=== PATIENT | male | born 1960 | race Caucasian/White ===

== ENCOUNTER 2019-01-08 21:42 | Inpatient (IN) | payer OTHER ==
[~2019-01-08] VITALS: Ht 165.1 cm; Wt 83.9 kg
[~2019-01-08 21:42] MED LIST: ACET325T33 PO; METF850T13 PO
[2019-01-08] MEDS ORDERED: SOD CHLORIDE 0.9% 1,000 ML IV ONE (22:33)
[2019-01-08] MEDS ORDERED: morphine 4 MG/ML VIAL IV ONE (22:34)
[2019-01-08] MEDS ORDERED: ONDANSETRON 4 MG INJ IV ONE (22:34)
[2019-01-08] MEDS ORDERED: HYDROmorphONE 0.5 MG/0.5 ML SYG IV STA (23:47)
[2019-01-09] MEDS ORDERED: ACETAMINOPHEN 325 MG TAB PO PRN ×2 (02:30→04:30)
[2019-01-09] MEDS ORDERED: ONDANSETRON 4 MG INJ IV PRN ×2 (02:30→04:30)
[2019-01-09] MEDS ORDERED: SOD CHLORIDE 0.9% 1,000 ML IV SCH (04:09)
[2019-01-09] MEDS ORDERED: GLUCAGON 1 MG INJ IM PRN (04:30)
[2019-01-09] MEDS ORDERED: DOCUSATE SODIUM 100 MG CAP PO PRN (04:30)
[2019-01-09] MEDS ORDERED: DEXTROSE 50% 50 ML SYRINGE IV PRN ×2 (04:30)
[2019-01-09] MEDS ORDERED: GLUCOSE GEL 15 GRAM TUBE PO PRN ×2 (04:30)
[2019-01-09] MEDS ORDERED: GLUCOSE GEL 15 GRAM TUBE BUCCAL PRN (04:30)
[2019-01-09] MEDS ORDERED: NACL 0.9% 3 ML SYG IV SCH (04:30)
[2019-01-09] MEDS ORDERED: morphine 2 MG INJ IV PRN (04:30)
[2019-01-09] MEDS ORDERED: BISACODYL (EC) 5 MG TAB PO PRN (04:30)
--- NOTE | 2019-01-09 04:31 | HP ---
Date/Time of Note Date/Time of Note DATE: 01/09/19 TIME: 04:15 Assessment/Plan VTE Prophylaxis SCD applied (from Nsg): Yes Pharmacological prophylaxis: NA/contraindicated Pharm contraindication: low risk/ambulating Lines/Catheters IV Catheter Type (from Nrsg): Saline Lock Assessment/Plan Hospital Course This is a 58-year-old male being admitted to the [facility] floor for: 1. Abdominal pain: CT scan concerning for ileus versus enteritis. There is also concern for possible closed loop obstruction versus internal hernia. At the current time we will keep the patient n.p.o. except meds. IV fluid hydration with normal saline. Zofran for nausea. Pain management. Will check electrolytes. General surgery has been consulted by the ED. Will await further recommendations. #2 Incidentaloma: CT scan shows a left-sided adrenal adenoma: 1.7cm x 1.3cm. Consider further work-up as an outpatient. #3 elevated blood sugars: Likely undiagnosed diabetes mellitus. Will check he moglobin A1c insulin sliding scale. #4 elevated blood pressure: Patient did present with elevated blood pressures in the 180s systolic however this did improve without any antihypertensive medications. This possibly could have been secondary to his pain. We will monitor closely. #5 obesity: Check hemoglobin A1c, lipid panel, TSH #6 DVT GI prophylaxis: SCDs, no GI prophylaxis indicated Further treatment strategy will be implemented as per the clinical course. Result Diagram: 01/08/19222901/08/190 Results 24hrs Laboratory Tests Test 01/08/19 22:30 01/09/19 03:32 White Blood Count 20.9 H Red Blood Count 5.04 Hemoglobin 15.6 Hematocrit 45.2 Mean Corpuscular Volume 89.7 Mean Corpuscular Hemoglobin 31.0 Mean Corpuscular Hemoglobin Concent 34.5 Red Cell Distribution Width 12.7 Platelet Count 294 Mean Platelet Volume 10.2 Immature Granulocytes % 0.600 H Neutrophils % 86.0 H Lymphocytes % 7.6 L Monocytes % 5.4 Eosinophils % 0.2 Basophils % 0.2 Nucleated Red Blood Cells % 0.0 Immature Granulocytes # 0.130 H Neutrophils # 18.0 H Lymphocytes # 1.6 Monocytes # 1.1 H Eosinophils # 0.0 Basophils # 0.1 Nucleated Red Blood Cells # 0.0 Prothrombin Time 13.0 Prothrombin Time Ratio 1.0 INR International Normalized Ratio 0.97 Activated Partial Thromboplast Time 27.4 Sodium Level 141 Potassium Level 3.8 Chloride Level 102 Carbon Dioxide Level 28 Anion Gap 11 Blood Urea Nitrogen 15 Creatinine 0.76 Est Glomerular Filtrat Rate mL/min > 60 Glucose Level 324 H Calcium Level 10.2 Total Bilirubin 1.0 Direct Bilirubin 0.00 Indirect Bilirubin 1.0 Aspartate Amino Transf (AST/SGOT) 32 Alanine Aminotransferase (ALT/SGPT) 24 Alkaline Phosphatase 123 H Total Protein 8.5 H Albumin 4.4 Globulin 4.10 H Albumin/Globulin Ratio 1.07 Amylase Level 82 Lipase 109 Bedside Glucose 253 H HPI/ROS Admit Date/Time Admit Date/Time Hx of Present Illness Chief complaint: Abdominal pain This is a 58-year-old male with no past medical history who presents to the emergency department complaining of abdominal pain. Patient reports that the pain has been going on for approximately 1 day. He states that it is sharp and it comes and goes. He reports that he yesterday had some milk coffee and bread and then a short while after that he started experiencing this pain. He denies any nausea vomiting or diarrhea. He did report that his last bowel movement was yesterday. He denies any fevers. He has not had any history of abdominal surgeries. Allergies: NKDA Medications: None ROS Const: As per HPI Eyes : No pain discharge or redness or change in visual acuity ENT: No pain, sore throat, congestion, congestion, dysphagia or discharge Respiratory: No shortness of breath, cough, sputum, wheezing, or pleuritic pain Cardiovascular: No chest pain, palpitation, PND, or edema GI : As per HPI Genitourinary: No dysuria, hematuria, flank pain , discharge or CVA tenderness Musculoskeletal: No joint pain, back pain, neck pain, restricted range of motion in neck or joints Skin: No rash, bruising or hives Neuro: No headache, dizziness, syncope, seizure, focal weakness Endocrine: No polyuria, polydipsia, temperature intolerance Psych: No hallucination, depression, anxiety or suicidal ideation PMH/Family/Social Past Medical History Medical History: no pertinent history Medications Current Medications Ondansetron HCl (Zofran Inj) 4 mg BRIDGE ORDER PRN IV NAUSEA/VOMITING; Start 01/09/19 at 02:30; Stop 01/10/19 at 02:29 Acetaminophen (Tylenol Tab) 650 mg ER BRIDGE PRN PO .MILD PAIN 1-3 OR TEMP; Start 01/09/19 at 02:30; Stop 01/10/19 at 02:29 Sodium Chloride 1,000 ml @ 100 mls/hr Q10H IV ; Start 01/09/19 at 04:09; Status UNV IV Flush (NS 3 ml) 3 ml PER PROTOCOL IV ; Start 01/09/19 at 04:30; Status UNV Ondansetron HCl (Zofran Inj) 4 mg Q6H PRN IV NAUSEA/VOMITING; Start 01/09/19 at 04:30; Status UNV Acetaminophen (Tylenol Tab) 650 mg Q6H PRN PO .PAIN 1-3 OR TEMP; Start 01/09/19 at 04:30; Status UNV Morphine Sulfate (morphine) 2 mg Q4H PRN IV .SEVERE PAIN 7-10; Start 01/09/19 at 04:30; Status UNV Docusate Sodium (Colace) 100 mg Q12H PRN PO .CONSTIPATION; Start 01/09/19 at 04:30; Status UNV Bisacodyl (Dulcolax) 5 mg DAILY PRN PO .CONSTIPATION; Start 01/09/19 at 04:30; Status UNV Coded Allergies: No Known Drug Allergies (Verified Allergy, Unknown, 01/09/19) Past Surgical History Past Surgical Hx: no surgical history Family History Significant Family History: no pertinent family hx Social History Alcohol Use: none Smoking Status: Never smoker Drug Use: none Exam/Review of Systems Vital Signs Vitals Vital Signs Date Temp Pulse Resp B/P (MAP) Pulse Ox O2 O2 Flow FiO2 Time Delivery Rate 01/09/19 98.8 83 13 117/79 97 Room Air 04:02 (92) Exam Exam General: Patient is a pleasant male currently lying in bed in no acute distress. HEENT: Atraumatic, normocephalic. The pupils are equal, round and reactive. Extraocular motor are intact Neck: Supple with full range of motion. No rigidity or meningismus Chest: Nontender Lungs: Clear to auscultation bilaterally no crackles rales or wheezing Heart: Normal S1-S2, Regular rhythm and rate. No murmur, S3, or S4 Abdomen: Obese, soft , nontender, nondistended , mildly hypoactive bowel sounds no guarding no rebound tenderness , No masses or organomegaly. No costovertebral temporal angle mass Extremities: Normal to inspection, no edema no cyanosis Neurologic: Normal mental status, speech normal, cranial nerves II through XII are intact, motor and sensory are intact, no focal weakness Additional Comments PROCEDURE: CT Abdomen and pelvis without contrast. CLINICAL INDICATION: Abdominal pain. TECHNIQUE: CT scan of the abdomen and pelvis was performed on a multi- detector high-resolution CT scanner. Contiguous axial images were obtained from the lung bases to the ischial tuberosities without intravenous contrast. Coronal and sagittal reformatted images were also obtained. Images were reviewed on the PACS workstation. DICOM images are available. One or more of the following dose reduction techniques were used: - Automated exposure control. - Adjustment of the mA and/or kV according to patient size. - Use of iterative reconstruction technique. Exam CTD/vol = 14.94 mGy. Total exam DLP = 954.10 mGy-cm. COMPARISON: None. FINDINGS: Evaluation of the lung bases demonstrates no pleural or parenchymal disease. Abdomen: The liver is normal in size. There is no focal mass or dilatation of the biliary tree. The gallbladder is not distended. The spleen, pancreas and right adrenal gland are within normal limits. There is a nodule within the left adrenal gland measuring 1.7 x 1.3 cm with Hounsfield characteristics compatible with adenoma. Bilateral kidneys are normal in size with no contour deforming mass identified. There is no radiopaque renal or ureteral calculus identified. There is no hydronephrosis or hydroureter. There is no retroperitoneal adenopathy. The abdominal aorta is of normal caliber. There are mildly dilated and thickened loops of small bowel within the mid to left abdomen with mesenteric stranding and mild free fluid. There is no free air. A normal appendix is identified. There are scattered sigmoid diverticuli without evidence of diverticulitis. Pelvis: The bladder is unremarkable. There is trace pelvic free fluid. The prostate is mildly enlarged. There are bilateral small inguinal hernias containing fat. There is no significant pelvic adenopathy. Evaluation of the osseous structures demonstrates no suspicious lytic or blastic lesion. IMPRESSION: Mildly dilated and thickened loops of small bowel within the mid to left abdomen with mesenteric stranding and mild free fluid represents an ileus and/or enteritis. Findings could suggest an internal hernia or closed loop obstruction. Follow-up is recommended. Scattered sigmoid diverticuli without evidence of diverticulitis. Trace pelvic free fluid. Mildly enlarged prostate. Bilateral small inguinal hernias containing fat. Left adrenal adenoma. Report relayed by Michell. .Bon Moreira MD, MD Date Time Electronically viewed and signed by .Bon Moreira MD, MD on 01/09/2019 00:04 .T/ CC: RICCI WEBSTER [id number] PROCEDURE: XR Chest. CLINICAL INDICATION: Abdominal pain TECHNIQUE: Single frontal view of the chest was obtained COMPARISON: CT abdomen pelvis of 01/08/2019 FINDINGS: The heart and mediastinum are within normal limits. Mild degenerative enthesopathy in lower thoracic spine. Hypoinflation lungs. No focal lung consolidation is seen. There is no pleural effusion or pneumothorax. ECG leads project over the chest. 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 IMPRESSION: Hypoinflation of the lungs. No definite acute abnormality seen. RPTAT: HJES .Crow Burciaga MD, Date Time Electronically viewed and signed by .Crow Burciaga MD, MD on 01/08/2019 23:56 .S/ CC: RICCI WEBSTER [id number] ASHLEY ANDERSEN Jan 09, 2019 04:25
[2019-01-09 04:34] VITALS: Ht 165.1 cm; Wt 83.9 kg
[2019-01-09] MEDS: INSULIN ASPART [NOVOLOG] 3 ML PEN SC SCH ×4 (05:52→20:46)
[2019-01-09 07:38] VITALS: BP 115/70; PULSE 89; RESP 16
--- NOTE | 2019-01-09 12:22 | PN ---
Date/Time of Note Date/Time of Note DATE: 01/09/19 TIME: 12:19 Assessment/Plan VTE Prophylaxis Risk score (from Nsg)>0 risk: 2 SCD applied (from Nsg): Yes Pharmacological prophylaxis: heparin Lines/Catheters IV Catheter Type (from Nrsg): Peripheral IV Assessment/Plan Hospital Course Obese male Resting comfortably in no distress ANO x3 Regular rate and rhythm Breathing comfortably Abdomen is soft nontender nondistended Assessment and plan: This is a 58-year-old male without known medical history aside from obesity who presents with acute onset abdominal pain yesterday. CT imaging was notable for possible ileitis versus obstruction -He does not seem clinically like this patient has an obstruction at the current time. His symptoms are entirely resolved. We will give a trial of clear liquids Diabetes: -Almost certainly type II -Diabetic education -Await A1c. Will send home on orals versus insulin depending on severity of elevation - Check lipids Result Diagram: 01/08/19222901/08/190 Results 24hrs Laboratory Tests Test 01/08/19 22:30 01/09/19 03:32 01/09/19 05:48 01/09/19 09:07 White Blood Count 20.9 H Red Blood Count 5.04 Hemoglobin 15.6 Hematocrit 45.2 Mean Corpuscular 89.7 Volume Mean Corpuscular 31.0 Hemoglobin Mean Corpuscular 34.5 Hemoglobin Concent Red Cell 12.7 Distribution Width Platelet Count 294 Mean Platelet Volume 10.2 Immature 0.600 H Granulocytes % Neutrophils % 86.0 H Lymphocytes % 7.6 L Monocytes % 5.4 Eosinophils % 0.2 Basophils % 0.2 Nucleated Red Blood 0.0 Cells % Immature 0.130 H Granulocytes # Neutrophils # 18.0 H Lymphocytes # 1.6 Monocytes # 1.1 H Eosinophils # 0.0 Basophils # 0.1 Nucleated Red Blood 0.0 Cells # Prothrombin Time 13.0 Prothrombin Time 1.0 Ratio INR International 0.97 Normalized Ratio Activated 27.4 Partial Thromboplast Time Sodium Level 141 Potassium Level 3.8 Chloride Level 102 Carbon Dioxide Level 28 Anion Gap 11 Blood Urea Nitrogen 15 Creatinine 0.76 Est Glomerular > 60 Filtrat Rate mL/min Glucose Level 324 H Calcium Level 10.2 Total Bilirubin 1.0 Direct Bilirubin 0.00 Indirect Bilirubin 1.0 Aspartate Amino 32 Transf (AST/SGOT) Alanine 24 Aminotransferase (AL T/SGPT) Alkaline Phosphatase 123 H Total Protein 8.5 H Albumin 4.4 Globulin 4.10 H Albumin/Globulin 1.07 Ratio Amylase Level 82 Lipase 109 Bedside Glucose 253 H 224 H 166 Subjective 24 Hr Interval Summary Free Text/Dictation Patient's abdominal pain hash resolved He now feels back to normal. He has not yet had a BM. He wants to start eating Discussed at length his new diagnosis of diabetes which he was unaware of Exam/Review of Systems Exam Vitals Vital Signs Date Temp Pulse Resp B/P (MAP) Pulse Ox O2 O2 Flow FiO2 Time Delivery Rate 01/09/19 98.4 89 16 115/70 94 Room Air 07:38 (85) Results Results 24hrs Laboratory Tests Test 01/08/19 22:30 01/09/19 03:32 01/09/19 05:48 01/09/19 09:07 White Blood Count 20.9 H Red Blood Count 5.04 Hemoglobin 15.6 Hematocrit 45.2 Mean Corpuscular 89.7 Volume Mean Corpuscular 31.0 Hemoglobin Mean Corpuscular 34.5 Hemoglobin Concent Red Cell 12.7 Distribution Width Platelet Count 294 Mean Platelet Volume 10.2 Immature 0.600 H Granulocytes % Neutrophils % 86.0 H Lymphocytes % 7.6 L Monocytes % 5.4 Eosinophils % 0.2 Basophils % 0.2 Nucleated Red Blood 0.0 Cells % Immature 0.130 H Granulocytes # Neutrophils # 18.0 H Lymphocytes # 1.6 Monocytes # 1.1 H Eosinophils # 0.0 Basophils # 0.1 Nucleated Red Blood 0.0 Cells # Prothrombin Time 13.0 Prothrombin Time 1.0 Ratio INR International 0.97 Normalized Ratio Activated 27.4 Partial Thromboplast Time Sodium Level 141 Potassium Level 3.8 Chloride Level 102 Carbon Dioxide Level 28 Anion Gap 11 Blood Urea Nitrogen 15 Creatinine 0.76 Est Glomerular > 60 Filtrat Rate mL/min Glucose Level 324 H Calcium Level 10.2 Total Bilirubin 1.0 Direct Bilirubin 0.00 Indirect Bilirubin 1.0 Aspartate Amino 32 Transf (AST/SGOT) Alanine 24 Aminotransferase (AL T/SGPT) Alkaline Phosphatase 123 H Total Protein 8.5 H Albumin 4.4 Globulin 4.10 H Albumin/Globulin 1.07 Ratio Amylase Level 82 Lipase 109 Bedside Glucose 253 H 224 H 166 Medications Medication Current Medications IV Flush (NS 3 ml) 3 ml PER PROTOCOL IV ; Start 7/25/19 at 04:30 Ondansetron HCl (Zofran Inj) 4 mg Q6H PRN IV NAUSEA/VOMITING; Start 01/09/19 at 04:30 Acetaminophen (Tylenol Tab) 650 mg Q6H PRN PO .PAIN 1-3 OR TEMP; Start 01/09/19 at 04:30 Morphine Sulfate (morphine) 2 mg Q4H PRN IV .SEVERE PAIN 7-10; Start 01/09/19 at 04:30 Docusate Sodium (Colace) 100 mg Q12H PRN PO .CONSTIPATION; Start 01/09/19 at 04:30 Bisacodyl (Dulcolax) 5 mg DAILY PRN PO .CONSTIPATION; Start 01/09/19 at 04:30 Miscellaneous Information 1 ea NOTE XX ; Start 01/09/19 at 04:30 Glucose (Glutose) 15 gm Q15M PRN PO DECREASED GLUCOSE; Start 01/09/19 at 04:30 Glucose (Glutose) 22.5 gm Q15M PRN PO DECREASED GLUCOSE; Start 01/09/19 at 04:30 Dextrose (D50w Syringe) 25 ml Q15M PRN IV DECREASED GLUCOSE; Start 01/09/19 at 04:30 Dextrose (D50w Syringe) 50 ml Q15M PRN IV DECREASED GLUCOSE; Start 01/09/19 at 04:30 Glucagon (Glucagen) 1 mg Q15M PRN IM DECREASED GLUCOSE; Start 01/09/19 at 04:30 Glucose (Glutose) 15 gm Q15M PRN BUCCAL DECREASED GLUCOSE; Start 01/09/19 at 04:30 Insulin Glargine (Lantus) 13 units DAILY@2000 SC ; Start 01/09/19 at 20:00 Insulin Aspart (Novolog Insulin Pen) NOVOLOG *MILD* ALGORI... Q4 SC ; Start 01/09/19 at 17:35; Status LORENA GIANG MD Jan 09, 2019 12:22
--- NOTE | 2019-01-09 12:56 | CONS ---
Assessment/Plan Assessment/Plan Hospital Course (Demo Recall) 1. Abdominal pain with mildly dilated and thickened loops of small bowel within the left to mid abdomen with mesenteric stranding and mild free fluid concerning for ileus or enteritis with concern for internal hernia or closed loop obstruction; now with + bowel function and improved abdominal pain -SBFT -N.p.o. -IV fluids -Pain management PRN 2. Significant leukocytosis: -Trend 3.Hyperglycemia: Concern for diabetes: -Diabetic work-up per medical team -Highly encouraged weight loss 4. Minimally elevated alkaline phosphatase: -Trend 5. Obesity BMI: -diet and exercise optimization -encourage weight loss Thank you. Patient seen and examined in collaboration with Dr. Jagdish Swanson. Consultation Date/Type/Reason Admit Date/Time Date of Consultation: Jan 09, 2019 Type of Consult Surgical Reason for Consultation Surgical Requesting Provider: ASHLEY ANDERSEN Date/Time of Note DATE: 01/09/19 TIME: 12:42 Hx of Present Illness Saul Ayala is a 58-year-old man with past medical history of obesity who presents to the ED with complaints of abdominal pain x1 day. Abdominal pain was described as strong and persistent. He reports having some food, coffee and bread and then began experiencing abdominal pain. He denies fevers, chills, congested cough, chest pain, nausea, vomiting, diarrhea, seizures, rash. CT of the abdomen was performed which noted mildly dilated and thickened loops of small bowel within the left to mid abdomen with mesenteric stranding and mild free fluid concerning for ileus or enteritis with concern for internal hernia or closed loop obstruction. Laboratory findings significant for leukocytosis with WBC of 20.9. Today, he reports having had bowel movements as well as flatus this morning. He also notes having felt a "release" in his belly and immediately began to feel better thereafter. 12 point review of systems was performed and is negative except as stated in HPI. Past Medical History Obesity Medications Current Medications IV Flush (NS 3 ml) 3 ml PER PROTOCOL IV ; Start 01/09/19 at 04:30 Ondansetron HCl (Zofran Inj) 4 mg Q6H PRN IV NAUSEA/VOMITING; Start 01/09/19 at 04:30 Acetaminophen (Tylenol Tab) 650 mg Q6H PRN PO .PAIN 1-3 OR TEMP; Start 01/09/19 at 04:30 Morphine Sulfate (morphine) 2 mg Q4H PRN IV .SEVERE PAIN 7-10; Start 01/09/19 at 04:30 Docusate Sodium (Colace) 100 mg Q12H PRN PO .CONSTIPATION; Start 01/09/19 at 04:30 Bisacodyl (Dulcolax) 5 mg DAILY PRN PO .CONSTIPATION; Start 01/09/19 at 04:30 Miscellaneous Information 1 ea NOTE XX ; Start 01/09/19 at 04:30 Glucose (Glutose) 15 gm Q15M PRN PO DECREASED GLUCOSE; Start 01/09/19 at 04:30 Glucose (Glutose) 22.5 gm Q15M PRN PO DECREASED GLUCOSE; Start 01/09/19 at 04:30 Dextrose (D50w Syringe) 25 ml Q15M PRN IV DECREASED GLUCOSE; Start 01/09/19 at 04:30 Dextrose (D50w Syringe) 50 ml Q15M PRN IV DECREASED GLUCOSE; Start 01/09/19 at 04:30 Glucagon (Glucagen) 1 mg Q15M PRN IM DECREASED GLUCOSE; Start 01/09/19 at 04:30 Glucose (Glutose) 15 gm Q15M PRN BUCCAL DECREASED GLUCOSE; Start 01/09/19 at 04:30 Insulin Glargine (Lantus) 13 units DAILY@2000 SC ; Start 01/09/19 at 20:00 Insulin Aspart (Novolog Insulin Pen) NOVOLOG *MILD* ALGORI... Q4 SC ; Start 01/09/19 at 17:35 Allergies: Coded Allergies: No Known Drug Allergies (Verified Allergy, Unknown, 01/09/19) Past Surgical History Past Surgical Hx: no surgical history Family History Significant Family History: no pertinent family hx Social History Alcohol Use: none Smoking Status: Never smoker Drug Use: none Exam/Review of Systems Exam Vitals Vital Signs Date Temp Pulse Resp B/P (MAP) Pulse Ox O2 O2 Flow FiO2 Time Delivery Rate 01/09/19 98.4 89 16 115/70 94 Room Air 07:38 (85) Constitutional: alert, oriented Psych: nl mood/affect Head: normocephalic, atraumatic Eyes: nl conjunctiva, nl lids, nl sclera ENMT: nl external ears & nose, nl nasal mucosa & septum, mucosa pink and moist Neck: non-tender; No jvd Respiratory: normal air movement; No congested cough Cardiovascular: regular rate and rhythm, nl pulses Gastrointestinal: soft, non-tender; No distended Genitourinary - Male: nl penis, nl scrotum Musculoskeletal: nl extremities to inspection, nl gait and stance Extremities: normal pulses Neurological: nl mental status, nl speech, nl strength Skin: No rash or lesions Lymph: nl lymph nodes Results Result Diagram: 01/08/19222901/08/192229 Results 24hrs Laboratory Tests Test 01/08/19 22:30 01/09/19 03:32 01/09/19 05:48 01/09/19 09:07 White Blood Count 20.9 H Red Blood Count 5.04 Hemoglobin 15.6 Hematocrit 45.2 Mean Corpuscular 89.7 Volume Mean Corpuscular 31.0 Hemoglobin Mean Corpuscular 34.5 Hemoglobin Concent Red Cell 12.7 Distribution Width Platelet Count 294 Mean Platelet Volume 10.2 Immature 0.600 H Granulocytes % Neutrophils % 86.0 H Lymphocytes % 7.6 L Monocytes % 5.4 Eosinophils % 0.2 Basophils % 0.2 Nucleated Red Blood 0.0 Cells % Immature 0.130 H Granulocytes # Neutrophils # 18.0 H Lymphocytes # 1.6 Monocytes # 1.1 H Eosinophils # 0.0 Basophils # 0.1 Nucleated Red Blood 0.0 Cells # Prothrombin Time 13.0 Prothrombin Time 1.0 Ratio INR International 0.97 Normalized Ratio Activated 27.4 Partial Thromboplast Time Sodium Level 141 Potassium Level 3.8 Chloride Level 102 Carbon Dioxide Level 28 Anion Gap 11 Blood Urea Nitrogen 15 Creatinine 0.76 Est Glomerular > 60 Filtrat Rate mL/min Glucose Level 324 H Calcium Level 10.2 Total Bilirubin 1.0 Direct Bilirubin 0.00 Indirect Bilirubin 1.0 Aspartate Amino 32 Transf (AST/SGOT) Alanine 24 Aminotransferase (AL T/SGPT) Alkaline Phosphatase 123 H Total Protein 8.5 H Albumin 4.4 Globulin 4.10 H Albumin/Globulin 1.07 Ratio Amylase Level 82 Lipase 109 Bedside Glucose 253 H 224 H 166 Medications Medication Current Medications IV Flush (NS 3 ml) 3 ml PER PROTOCOL IV ; Start 01/09/19 at 04:30 Ondansetron HCl (Zofran Inj) 4 mg Q6H PRN IV NAUSEA/VOMITING; Start 01/09/19 at 04:30 Acetaminophen (Tylenol Tab) 650 mg Q6H PRN PO .PAIN 1-3 OR TEMP; Start 01/09/19 at 04:30 Morphine Sulfate (morphine) 2 mg Q4H PRN IV .SEVERE PAIN 7-10; Start 01/09/19 at 04:30 Docusate Sodium (Colace) 100 mg Q12H PRN PO .CONSTIPATION; Start 01/09/19 at 04:30 Bisacodyl (Dulcolax) 5 mg DAILY PRN PO .CONSTIPATION; Start 01/09/19 at 04:30 Miscellaneous Information 1 ea NOTE XX ; Start 01/09/19 at 04:30 Glucose (Glutose) 15 gm Q15M PRN PO DECREASED GLUCOSE; Start 01/09/19 at 04:30 Glucose (Glutose) 22.5 gm Q15M PRN PO DECREASED GLUCOSE; Start 01/09/19 at 04:30 Dextrose (D50w Syringe) 25 ml Q15M PRN IV DECREASED GLUCOSE; Start 01/09/19 at 04:30 Dextrose (D50w Syringe) 50 ml Q15M PRN IV DECREASED GLUCOSE; Start 01/09/19 at 04:30 Glucagon (Glucagen) 1 mg Q15M PRN IM DECREASED GLUCOSE; Start 01/09/19 at 04:30 Glucose (Glutose) 15 gm Q15M PRN BUCCAL DECREASED GLUCOSE; Start 01/09/19 at 04:30 Insulin Glargine (Lantus) 13 units DAILY@2000 SC ; Start 01/09/19 at 20:00 Insulin Aspart (Novolog Insulin Pen) NOVOLOG *MILD* ALGORI... Q4 SC ; Start 01/09/19 at 17:35 SARAH GUARDADO NP Jan 09, 2019 12:52
[2019-01-09 14:30] VITALS: BP 117/74; PULSE 79
[2019-01-09] MEDS ORDERED: IOHEXOL 300MG/ML 150 ML BTL ONE (15:13)
[2019-01-09] MEDS ORDERED: INSULIN ASPART [NOVOLOG] 3 ML PEN SC SCH (17:35)
[2019-01-09 19:57] VITALS: BP 105/59; PULSE 78; RESP 17
[2019-01-09] MEDS: INSULIN GLARGINE [LANTus] (100 UNITS/ML) SYG SC SCH (20:46)
[2019-01-09] MEDS: SOD CHLORIDE 0.9% 1,000 ML IV SCH (21:42)
[2019-01-10] MEDS: INSULIN ASPART [NOVOLOG] 3 ML PEN SC SCH ×6 (01:00→20:18)
[2019-01-10] MEDS ORDERED: ACCU-CHEK XX SCH (02:00)
[2019-01-10 02:11] VITALS: BP 111/69; PULSE 65; RESP 16
[2019-01-10] MEDS: SOD CHLORIDE 0.9% 1,000 ML IV SCH ×2 (06:58→17:24)
[2019-01-10 07:28] VITALS: BP 109/70; RESP 16
[2019-01-10 14:22] VITALS: BP 127/77; PULSE 81; RESP 16
--- NOTE | 2019-01-10 17:22 | PN ---
Date/Time of Note Date/Time of Note DATE: 01/10/19 TIME: 17:18 Assessment/Plan Lines/Catheters IV Catheter Type (from Nrsg): Peripheral IV Assessment/Plan Chief Complaint/Hosp Course 1. Abdominal pain with mildly dilated and thickened loops of small bowel within the left to mid abdomen with mesenteric stranding and mild free fluid concerning for ileus or enteritis with concern for internal hernia or closed loop obstruction; now with + bowel function and no abdominal pain: sbft done- pending report -if sbft negative, ok to start full liquid advance to soft diet and dc from surgical standpoint -IV fluids -Pain management PRN 2. Significant leukocytosis: resolved -Trend 3.Hyperglycemia: Concern for diabetes: -Diabetic work-up per medical team -Highly encouraged weight loss 4. Minimally elevated alkaline phosphatase: -Trend 5. Obesity BMI: -diet and exercise optimization -encourage weight loss Thank you. Patient seen and examined in collaboration with Dr. Jagdish Swanson. Subjective 24 Hr Interval Summary Feels well. No acute abdominal pain. + Bowel function. Small bowel follow- through pending final report. No fevers, chills, sob, congested cough, cp, palpitations, del real, dizziness, nausea, vomiting, diarrhea, dysuria. Exam/Review of Systems Vital Signs Vitals Vital Signs Date Temp Pulse Resp B/P (MAP) Pulse Ox O2 O2 Flow FiO2 Time Delivery Rate 01/10/19 98.7 81 16 127/77 97 Room Air 14:22 (94) Intake and Output 01/09/19 01/09/19 01/10/19 1515:00 23:00 07:00 IntakeIntake Total 1000 ml 1000 ml BalanceBalance 1000 ml 1000 ml Exam Free Text/Dictation Constitutional: alert, oriented Psych: nl mood/affect Head: normocephalic, atraumatic Eyes: nl conjunctiva, nl lids, nl sclera ENMT: nl external ears & nose, nl nasal mucosa & septum, mucosa pink and moist Neck: non-tender; No jvd Respiratory: normal air movement; No congested cough Cardiovascular: regular rate and rhythm, nl pulses Gastrointestinal: soft, non-tender; No distended Genitourinary - Male: nl penis, nl scrotum Musculoskeletal: nl extremities to inspection, nl gait and stance Extremities: normal pulses Neurological: nl mental status, nl speech, nl strength Skin: No rash or lesions Lymph: nl lymph nodes Results Result Diagram: 01/09/19 1326 01/10/19 0531 SARAH GUARDADO NP Jan 10, 2019 17:22
--- NOTE | 2019-01-10 19:53 | PN ---
Date/Time of Note Date/Time of Note DATE: 01/10/19 TIME: 19:51 Assessment/Plan VTE Prophylaxis Risk score (from Nsg)>0 risk: 2 SCD applied (from Nsg): Yes SCD contraindicated: low risk/ambulating Pharmacological prophylaxis: LMWH Lines/Catheters IV Catheter Type (from Nrsg): Peripheral IV Assessment/Plan Hospital Course A/P 1. SBO? check sbft; cont npo 2. Lt adrenal nodule? 3. New DM II 10.3 a1c 4. Htn S: sp bm. no n/v O: vss PE no pallor/ icterus reg ctab bs dimin, mild tender/ distended no rrg no edema Result Diagram: 01/09/19 1326 01/10/19 0531 Results 24hrs Laboratory Tests Test 01/09/19 20:43 01/10/19 01:09 01/10/19 05:31 01/10/19 05:44 Bedside Glucose 163 133 126 Sodium Level 144 Potassium Level 3.9 Chloride Level 111 H Carbon Dioxide Level 28 Anion Gap 5 Blood Urea Nitrogen 13 Creatinine 0.76 Est Glomerular > 60 Filtrat Rate mL/min Glucose Level 131 # Hemoglobin A1c 10.3 H Calcium Level 8.6 Triglycerides Level 109 Cholesterol Level 142 LDL Cholesterol, 89 Calculated HDL Cholesterol 31 Cholesterol/HDL 4.5 Ratio Test 01/10/19 09:01 01/10/19 13:30 01/10/19 17:31 Bedside Glucose 112 95 93 Exam/Review of Systems Exam Vitals Vital Signs Date Temp Pulse Resp B/P (MAP) Pulse Ox O2 O2 Flow FiO2 Time Delivery Rate 01/10/19 98.7 81 16 127/77 97 Room Air 14:22 (94) Intake and Output 01/09/19 01/09/19 01/10/19 1515:00 23:00 07:00 IntakeIntake Total 1000 ml 1000 ml BalanceBalance 1000 ml 1000 ml Results Results 24hrs Laboratory Tests Test 01/09/19 20:43 01/10/19 01:09 01/10/19 05:31 01/10/19 05:44 Bedside Glucose 163 133 126 Sodium Level 144 Potassium Level 3.9 Chloride Level 111 H Carbon Dioxide Level 28 Anion Gap 5 Blood Urea Nitrogen 13 Creatinine 0.76 Est Glomerular > 60 Filtrat Rate mL/min Glucose Level 131 # Hemoglobin A1c 10.3 H Calcium Level 8.6 Triglycerides Level 109 Cholesterol Level 142 LDL Cholesterol, 89 Calculated HDL Cholesterol 31 Cholesterol/HDL 4.5 Ratio Test 01/10/19 09:01 01/10/19 13:30 01/10/19 17:31 Bedside Glucose 112 95 93 Medications Medication Current Medications IV Flush (NS 3 ml) 3 ml PER PROTOCOL IV ; Start 01/09/19 at 04:30 Ondansetron HCl (Zofran Inj) 4 mg Q6H PRN IV NAUSEA/VOMITING; Start 01/09/19 at 04:30 Acetaminophen (Tylenol Tab) 650 mg Q6H PRN PO .PAIN 1-3 OR TEMP; Start 01/09/19 at 04:30 Morphine Sulfate (morphine) 2 mg Q4H PRN IV .SEVERE PAIN 7-10; Start 01/09/19 at 04:30 Docusate Sodium (Colace) 100 mg Q12H PRN PO .CONSTIPATION; Start 01/09/19 at 04:30 Bisacodyl (Dulcolax) 5 mg DAILY PRN PO .CONSTIPATION; Start 01/09/19 at 04:30 Miscellaneous Information 1 ea NOTE XX ; Start 01/09/19 at 04:30 Glucose (Glutose) 15 gm Q15M PRN PO DECREASED GLUCOSE; Start 01/09/19 at 04:30 Glucose (Glutose) 22.5 gm Q15M PRN PO DECREASED GLUCOSE; Start 01/09/19 at 04:30 Dextrose (D50w Syringe) 25 ml Q15M PRN IV DECREASED GLUCOSE; Start 01/09/19 at 04:30 Dextrose (D50w Syringe) 50 ml Q15M PRN IV DECREASED GLUCOSE; Start 01/09/19 at 04:30 Glucagon (Glucagen) 1 mg Q15M PRN IM DECREASED GLUCOSE; Start 01/09/19 at 04:30 Glucose (Glutose) 15 gm Q15M PRN BUCCAL DECREASED GLUCOSE; Start 01/09/19 at 04:30 Insulin Glargine (Lantus) 13 units DAILY@1999 SC Last administered on 01/09/19at 20:46; Admin Dose 13 UNITS; Start 01/09/19 at 20:00 Insulin Aspart (Novolog Insulin Pen) NOVOLOG *MILD* ALGORI... Q4 SC Last administered on 01/09/19at 20:46; Admin Dose 1 UNIT; Start 01/09/19 at 17:35 Sodium Chloride 1,000 ml @ 100 mls/hr Q10H IV Last administered on 01/10/19at 17:24; Admin Dose 100 MLS/HR; Start 01/09/19 at 21:00 ROMA JOSÉ MD Jan 10, 2019 19:53
[2019-01-10 20:00] VITALS: BP 129/75; PULSE 78; RESP 18
[2019-01-10] MEDS: INSULIN GLARGINE [LANTus] (100 UNITS/ML) SYG SC SCH (20:00)
[2019-01-11] MEDS: INSULIN ASPART [NOVOLOG] 3 ML PEN SC SCH ×6 (01:00→20:20)
[2019-01-11] MEDS: DEXTROSE 5%-0.45% NACL 1,000 ML IV SCH ×2 (01:32→16:45)
[2019-01-11 01:55] VITALS: BP 122/68; PULSE 75; RESP 18
[2019-01-11 08:00] VITALS: BP 127/78; PULSE 69; RESP 17
[2019-01-11] MEDS: FAMOTIDINE 20 MG INJ IV SCH (08:45)
[2019-01-11 14:00] VITALS: BP 129/77; PULSE 70; RESP 18
--- NOTE | 2019-01-11 18:43 | PN ---
Date/Time of Note Date/Time of Note DATE: 01/11/19 TIME: 18:43 Assessment/Plan VTE Prophylaxis Risk score (from Nsg)>0 risk: 1 SCD applied (from Nsg): Yes SCD contraindicated: low risk/ambulating Pharmacological prophylaxis: LMWH Lines/Catheters IV Catheter Type (from Nrsg): Peripheral IV Assessment/Plan Hospital Course A/P 1. SBO? check sbft; probably ready for diet 2. Lt adrenal nodule? 3. New DM II 10.3 a1c 4. Htn S: / sp bm. no n/v 01/11 hungry flatus no abdominal pain O: vss PE no pallor/ icterus reg ctab bs dimin, nt nd no rrg no edema Result Diagram: 01/11/1930 01/11/19 0730 Results 24hrs Laboratory Tests Test 01/10/19 20:12 01/11/19 01:10 01/11/19 05:04 01/11/19 07:30 Bedside Glucose 93 76 99 White Blood Count 5.8 # Red Blood Count 4.38 L Hemoglobin 13.6 L Hematocrit 39.8 L Mean Corpuscular 90.9 Volume Mean Corpuscular 31.1 Hemoglobin Mean Corpuscular 34.2 Hemoglobin Concent Red Cell 12.7 Distribution Width Platelet Count 255 Mean Platelet Volume 10.1 Immature 0.300 Granulocytes % Neutrophils % 65.0 Lymphocytes % 24.7 Monocytes % 7.4 Eosinophils % 2.1 Basophils % 0.5 Nucleated Red Blood 0.0 Cells % Immature 0.020 Granulocytes # Neutrophils # 3.8 Lymphocytes # 1.4 Monocytes # 0.4 Eosinophils # 0.1 Basophils # 0.0 Nucleated Red Blood 0.0 Cells # Sodium Level 142 Potassium Level 3.6 Chloride Level 110 Carbon Dioxide Level 24 Anion Gap 8 Blood Urea Nitrogen 10 Creatinine 0.64 Est Glomerular > 60 Filtrat Rate mL/min Glucose Level 118 Lactic Acid Level 1.0 Calcium Level 8.6 Phosphorus Level 2.9 Magnesium Level 1.7 Total Bilirubin 1.6 H Direct Bilirubin 0.00 Indirect Bilirubin 1.6 H Aspartate Amino 24 Transf (AST/SGOT) Alanine 22 Aminotransferase (AL T/SGPT) Alkaline Phosphatase 58 Total Protein 6.8 Albumin 3.4 Globulin 3.40 H Albumin/Globulin 1.00 Ratio Lipase 94 Thyroid Stimulating 0.574 Hormone (TSH) Test 01/11/19 08:48 01/11/19 13:19 01/11/19 16:50 Bedside Glucose 130 124 136 Exam/Review of Systems Exam Vitals Vital Signs Date Temp Pulse Resp B/P (MAP) Pulse Ox O2 O2 Flow FiO2 Time Delivery Rate 01/11/19 98.8 70 18 129/77 96 Room Air 14:00 (94) Intake and Output 01/10/19 01/10/19 01/11/19 1515:00 23:00 07:00 IntakeIntake Total 1150 ml 770 ml BalanceBalance 1150 ml 770 ml Results Results 24hrs Laboratory Tests Test 01/10/19 20:12 01/11/19 01:10 01/11/19 05:04 01/11/19 07:30 Bedside Glucose 93 76 99 White Blood Count 5.8 # Red Blood Count 4.38 L Hemoglobin 13.6 L Hematocrit 39.8 L Mean Corpuscular 90.9 Volume Mean Corpuscular 31.1 Hemoglobin Mean Corpuscular 34.2 Hemoglobin Concent Red Cell 12.7 Distribution Width Platelet Count 255 Mean Platelet Volume 10.1 Immature 0.300 Granulocytes % Neutrophils % 65.0 Lymphocytes % 24.7 Monocytes % 7.4 Eosinophils % 2.1 Basophils % 0.5 Nucleated Red Blood 0.0 Cells % Immature 0.020 Granulocytes # Neutrophils # 3.8 Lymphocytes # 1.4 Monocytes # 0.4 Eosinophils # 0.1 Basophils # 0.0 Nucleated Red Blood 0.0 Cells # Sodium Level 142 Potassium Level 3.6 Chloride Level 110 Carbon Dioxide Level 24 Anion Gap 8 Blood Urea Nitrogen 10 Creatinine 0.64 Est Glomerular > 60 Filtrat Rate mL/min Glucose Level 118 Lactic Acid Level 1.0 Calcium Level 8.6 Phosphorus Level 2.9 Magnesium Level 1.7 Total Bilirubin 1.6 H Direct Bilirubin 0.00 Indirect Bilirubin 1.6 H Aspartate Amino 24 Transf (AST/SGOT) Alanine 22 Aminotransferase (AL T/SGPT) Alkaline Phosphatase 58 Total Protein 6.8 Albumin 3.4 Globulin 3.40 H Albumin/Globulin 1.00 Ratio Lipase 94 Thyroid Stimulating 0.574 Hormone (TSH) Test 01/11/19 08:48 01/11/19 13:19 01/11/19 16:50 Bedside Glucose 130 124 136 Medications Medication Current Medications IV Flush (NS 3 ml) 3 ml PER PROTOCOL IV ; Start 01/09/19 at 04:30 Ondansetron HCl (Zofran Inj) 4 mg Q6H PRN IV NAUSEA/VOMITING; Start 01/09/19 at 04:30 Acetaminophen (Tylenol Tab) 650 mg Q6H PRN PO .PAIN 1-3 OR TEMP; Start 01/09/19 at 04:30 Morphine Sulfate (morphine) 2 mg Q4H PRN IV .SEVERE PAIN 7-10; Start 01/09/19 at 04:30 Docusate Sodium (Colace) 100 mg Q12H PRN PO .CONSTIPATION; Start 01/09/19 at 04:30 Bisacodyl (Dulcolax) 5 mg DAILY PRN PO .CONSTIPATION; Start 01/09/19 at 04:30 Miscellaneous Information 1 ea NOTE XX ; Start 01/09/19 at 04:30 Glucose (Glutose) 15 gm Q15M PRN PO DECREASED GLUCOSE; Start 01/09/19 at 04:30 Glucose (Glutose) 22.5 gm Q15M PRN PO DECREASED GLUCOSE; Start 01/09/19 at 04:30 Dextrose (D50w Syringe) 25 ml Q15M PRN IV DECREASED GLUCOSE; Start 01/09/19 at 04:30 Dextrose (D50w Syringe) 50 ml Q15M PRN IV DECREASED GLUCOSE; Start 01/09/19 at 04:30 Glucagon (Glucagen) 1 mg Q15M PRN IM DECREASED GLUCOSE; Start 01/09/19 at 04:30 Glucose (Glutose) 15 gm Q15M PRN BUCCAL DECREASED GLUCOSE; Start 01/09/19 at 04:30 Insulin Glargine (Lantus) 13 units DAILY@2000 SC Last administered on 01/09/19at 20:46; Admin Dose 13 UNITS; Start 01/09/19 at 20:00 Insulin Aspart (Novolog Insulin Pen) NOVOLOG *MILD* ALGORI... Q4 SC Last administered on 01/09/19at 20:46; Admin Dose 1 UNIT; Start 01/09/19 at 17:35 Famotidine (Pepcid Iv) 20 mg DAILY IV Last administered on 01/11/19at 08:45; Admin Dose 20 MG; Start 01/11/19 at 09:00 Dextrose/Sodium Chloride 1,000 ml @ 70 mls/hr [id number] IV Last administered on 01/11/19at 16:45; Admin Dose 70 MLS/HR; Start 01/11/19 at 01:30 ROMA JOSÉ MD Jan 11, 2019 18:43
[2019-01-11] MEDS: INSULIN GLARGINE [LANTus] (100 UNITS/ML) SYG SC SCH (20:00)
[2019-01-11 20:24] VITALS: BP 138/87; PULSE 68; RESP 19
[2019-01-11] MEDS ORDERED: INSULIN GLARGINE [LANTus] (100 UNITS/ML) SYG SC ONE (21:00)
--- NOTE | 2019-01-11 21:45 | PN ---
Date/Time of Note Date/Time of Note DATE: 01/11/19 TIME: 21:42 Assessment/Plan Lines/Catheters IV Catheter Type (from Nrs): Peripheral IV Assessment/Plan Chief Complaint/Hosp Course 1. Abdominal pain with mildly dilated and thickened loops of small bowel within the left to mid abdomen with mesenteric stranding and mild free fluid concerning for ileus or enteritis with concern for internal hernia or closed loop obstruction; now with + bowel function and no abdominal pain: SBFT negative. -advance diet as tolerated -dc planning after tolerating diet 2. Significant leukocytosis: resolved -Trend 3. Hyperglycemia: Concern for diabetes: -Diabetic work-up per medical team -Highly encouraged weight loss 4. Minimally elevated alkaline phosphatase: -Trend 5. Obesity BMI 31: -diet and exercise optimization -encourage weight loss Thank you Subjective 24 Hr Interval Summary SBFT negative. Feels well. No abdominal pain. + Bowel function. No fevers, chills, sob, congested cough, cp, palpitations, del real, dizziness, nausea, vomiting, diarrhea, dysuria. Exam/Review of Systems Vital Signs Vitals Vital Signs Date Temp Pulse Resp B/P (MAP) Pulse Ox O2 O2 Flow FiO2 Time Delivery Rate 01/12/19 98.5 64 18 139/85 98 Room Air 07:41 (103) Intake and Output 01/11/19 01/11/19 01/12/19 1515:00 23:00 07:00 IntakeIntake Total 595 ml OutputOutput Total 600 ml 400 ml BalanceBalance -5 ml -400 ml Exam Free Text/Dictation Constitutional: alert, oriented Psych: nl mood/affect Head: normocephalic, atraumatic Eyes: nl conjunctiva, nl lids, nl sclera ENMT: nl external ears & nose, nl nasal mucosa & septum, mucosa pink and moist Neck: non-tender; No jvd Respiratory: normal air movement; No congested cough Cardiovascular: regular rate and rhythm, nl pulses Gastrointestinal: soft, non-tender; No distended, rebound, guarding Genitourinary - Male: nl penis, nl scrotum Musculoskeletal: nl extremities to inspection, nl gait and stance Extremities: normal pulses Neurological: nl mental status, nl speech, nl strength Skin: No rash or lesions Lymph: nl lymph nodes Results Result Diagram: 01/11/1972901/11/19729 NEETA POSADAS MD Jan 11, 2019 21:45
[2019-01-12] MEDS: INSULIN ASPART [NOVOLOG] 3 ML PEN SC SCH ×3 (00:49→11:30)
[2019-01-12 02:03] VITALS: BP 118/77; PULSE 58; RESP 19
[2019-01-12] MEDS: DEXTROSE 5%-0.45% NACL 1,000 ML IV SCH (05:59)
[2019-01-12 07:41] VITALS: BP 139/85; PULSE 64; RESP 18
[2019-01-12] MEDS: FAMOTIDINE 20 MG INJ IV SCH (09:21)
--- NOTE | 2019-01-12 11:41 | PN ---
Date/Time of Note Date/Time of Note DATE: 01/12/19 TIME: 11:40 Assessment/Plan Lines/Catheters IV Catheter Type (from Nrsg): Peripheral IV Assessment/Plan Chief Complaint/Hosp Course 1. Abdominal pain with mildly dilated and thickened loops of small bowel within the left to mid abdomen with mesenteric stranding and mild free fluid concerning for ileus or enteritis with concern for internal hernia or closed loop obstruction; now with + bowel function and no abdominal pain: SBFT negative. -advance diet as tolerated -dc planning ok from surgical standpoint 2. Significant leukocytosis: resolved 3. Hyperglycemia: Concern for diabetes: -Diabetic work-up per medical team -Highly encouraged weight loss 4. Minimally elevated alkaline phosphatase: -Trend 5. Obesity BMI 31: -diet and exercise optimization -encourage weight loss Thank you Subjective 24 Hr Interval Summary Tolerating liquids. SBFT negative. Feels well. No abdominal pain. + Bowel function. No fevers, chills, sob, congested cough, cp, palpitations, del real, dizziness, nausea, vomiting, diarrhea, dysuria. Exam/Review of Systems Vital Signs Vitals Vital Signs Date Temp Pulse Resp B/P (MAP) Pulse Ox O2 O2 Flow FiO2 Time Delivery Rate 01/12/19 98.5 64 18 139/85 98 Room Air 07:41 (103) Intake and Output 01/11/19 01/11/19 01/12/19 1515:00 23:00 07:00 IntakeIntake Total 595 ml OutputOutput Total 600 ml 400 ml BalanceBalance -5 ml -400 ml Exam Free Text/Dictation Constitutional: alert, oriented Psych: nl mood/affect Head: normocephalic, atraumatic Eyes: nl conjunctiva, nl lids, nl sclera ENMT: nl external ears & nose, nl nasal mucosa & septum, mucosa pink and moist Neck: non-tender; No jvd Respiratory: normal air movement; No congested cough Cardiovascular: regular rate and rhythm, nl pulses Gastrointestinal: soft, non-tender; No distended, rebound, guarding Genitourinary - Male: nl penis, nl scrotum Musculoskeletal: nl extremities to inspection, nl gait and stance Extremities: normal pulses Neurological: nl mental status, nl speech, nl strength Skin: No rash or lesions Lymph: nl lymph nodes Results Result Diagram: 01/11/1972901/11/19729 NEETA POSADAS MD Jan 12, 2019 11:41
[2019-01-12 14:00] VITALS: BP 120/78; PULSE 72; RESP 18
--- NOTE | 2019-01-12 15:01 | DS ---
Date/Time of Note Date/Time of Note DATE: 01/12/19 TIME: 14:58 Discharge Summary Admission/Discharge Info Admit Date/Time Jan 09, 2019 at 02:13 Discharge Date/Time Patient Condition: Stable Consults Dr Robert Swanson Procedures CAT scan abdomen pelvis IMPRESSION: Mildly dilated and thickened loops of small bowel within the mid to left abdomen with mesenteric stranding and mild free fluid represents an ileus and/or enteritis. Findings could suggest an internal hernia or closed loop obstruction. Follow-up is recommended. Scattered sigmoid diverticuli without evidence of diverticulitis. Trace pelic free fluid. Mildly enlarged prostate. Bilateral small inguinal hernias containing fat. Left adrenal adenoma. Small bowel follow-through IMPRESSION: No evidence of bowel obstruction. Mildly dilated loops of small bowel within the mid to left abdomen suggestive of an ileus and/or enteritis. Chest x-ray No acute process Hx of Present Illness Admitted with abdominal pain Hospital Course Hospital course Abdominal pain. Concern for bowel obstruction on CAT scan. Small bowel follow- through series was fairly unremarkable. Patient is tolerating diet, stable for discharge. Incidentally seen to have an A1c of 10.3. Will start metformin and change his diet. A/P 1. SBO? check sbft; probably ready for diet 2. Lt adrenal nodule? Incidentaloma, continue serial imaging. We will try to referral to endocrinology additionally 3. New DM II 10.3 a1c 4. Htn Primary Care Provider Not On Staff Doctor Time spent on discharge: > 30 minutes Pending Labs Laboratory Tests Test 01/11/19 16:50 01/11/19 20:17 01/12/19 00:49 01/12/19 07:50 Bedside 136 118 127 139 Glucose mg/dL (70-220) mg/dL (70-220) mg/dL (70-220) mg/dL (70-220) Test 01/12/19 11:50 Bedside 197 Glucose mg/dL (70-220) ROMA JOSÉ MD Jan 12, 2019 15:01
--- NOTE | 2019-01-12 15:03 | PDOCDIS ---
Discharge Instructions CONDITION [id number] Patient Condition: [id number] Stable HOME CARE INSTRUCTIONS: [id number] Diet Instructions: [id number] Activity Restrictions: [id number] Slowly Increase Activity Avoid heavy lifting FOLLOW UP/APPOINTMENTS Follow-up Plan Appointment primary and endocrinology 1 week ROMA JOSÉ MD Jan 12, 2019 15:03
[2019-01-12] MEDS ORDERED: metFORMIN 850 MG TAB PO SCH (18:05)
== END 2019-01-12 16:40 | disposition home or self-care (01) | DRG 390 ==
LOC: E/R 21:42 → PP2 01-09 02:13 → EDBEDREQ 01-09 02:24 → E/R 01-09 04:21
PROVIDERS: ADMIT Family Medicine; ATTEND Internal Medicine
DX: K56.609 Unspecified intestinal obstruction, unspecified as to partial versus complete obstruction (principal); D35.02 Benign neoplasm of left adrenal gland; E11.9 Type 2 diabetes mellitus without complications; E66.9 Obesity, unspecified; I10 Essential (primary) hypertension; Z68.31 Body mass index [BMI] 31.0-31.9, adult
CPT/HCPCS: 71045; 74176; 74250; 80048; 80053; 80061; 82150; 82962; 83036; 83605; 83690; 83735; 84100; 84443; 85025; 85610; 85730; J1170; J1815; J2270; J2405; J7030; J7042; Q9967